=== PATIENT | male | born 1970 | race Caucasian/White ===

== ENCOUNTER 2023-08-18 14:41 | Emergency (ER) | payer MEDICAID ==
[~2023-08-18] VITALS: Ht 170.2 cm; Wt 86.0 kg
[2023-08-18 14:42] VITALS: BP 114/70; PULSE 100; RESP 16; O2SAT 98
[2023-08-18] MEDS ORDERED: ACETAMINOPHEN 325MG TABLET PO ONE (17:30)
[2023-08-18 17:37] VITALS: TEMP 97.9
[2023-08-18] MEDS ORDERED: LIDOCAINE HCL/PF 1% 10 MG/ML 5ML VIAL INFIL ONE (18:00)
[2023-08-18] MEDS ORDERED: TOPUD PO (18:14)
[2023-08-18] MEDS ORDERED: SULF1TAB48 PO (18:14)
[2023-08-18] MEDS ORDERED: CEPH500C2 PO (18:14)
== END 2023-08-18 18:50 | disposition home or self-care (01) ==
LOC: ER 14:41
DX: L02.415 Cutaneous abscess of right lower limb (principal); F32.A Depression, unspecified; F19.90 Other psychoactive substance use, unspecified, uncomplicated; K75.9 Inflammatory liver disease, unspecified
CPT/HCPCS: 10060; 99284; J3490; Z7610